=== PATIENT | female | born 1975 | race Caucasian/White ===

== ENCOUNTER → 2023-07-08 | Outpatient (CLI) | payer OTHER, SELFPAY ==
[2023-07-08 10:08] LABS: Absolute Lymphocyte Count 1.33 X10^3/uL (0.83-4.51); Absolute Neutrophil Count 2.2 X10^3/uL (2.0-7.7); Basophil# 0.05 X10^3/uL; Basophil% 1.2 % (0-1); Eosinophil# 0.19 X10^3/uL; Eosinophils% 4.5 % (0-5); Hematocrit 36.4 % (37-47); Lymphocyte # 1.33 X10^3/ul (0.83-4.51); Lymphocyte % 31.8 % (19-41); Mean Corp Hgb Conc 30.2 g/dL (32-36); Mean Corpuscular Hgb 26.7 pg (27.0-32.0); Mean Corpuscular Volume 88.3 fL (81-99); Mean Platelet Vol. 10.8 fl (6.2-12.0); Monocyte# 0.43 X10^3/uL; Monocyte% 10.3 % (0-10); NRBC Flagged by Analyzer 0 % (0-5); Neutrophil # 2.18 X10^3/uL (2.7-7.7); Neutrophil % 52.2 % (47-70); Platelet Count 236 K/mm3 (150-450); RBC Distribution Width CV 14.2 % (11.6-14.6); RBC Distribution Width SD 45.2 fl (35.1-43.9); Red Blood Count 4.12 M/mm3 (4.2-5.4); White Blood Count 4.2 K/mm3 (4.4-11.0)
[2023-07-08 10:21] LABS: ALB/GLOB Ratio 0.9 RATIO (0.9-2.4); AST(SGOT) 14 U/L (15-37); Alanine Aminotransfer ALT/SGPT 18 U/L (13-56); Albumin, Serum 3.3 g/dL (3.2-5.0); Alkaline Phosphatase 42 U/L (45-117); Anion Gap 4 (5-15); BUN 12 mg/dL (7-18); BUN/Creat Ratio 18.6 RATIO (10-20); Calcium,Total 8.2 mg/dL (8.5-10.1); Chloride 108 mmol/L (98-107); Cholesterol 162 mg/dL (200); Creatinine, Serum 0.65 mg/dL (0.55-1.02); EST Glomerular Filtration Rate 105 mL/min (>60); Est Glom Filt Rate - Afr Amer 126 mL/min (>60); Globulin 3.6 g/dL (2.2-4.2); Glucose 88 mg/dL (74-106); High Density Lipoprotein 75 mg/dL; Potassium 3.9 mmol/L (3.5-5.1); Protein, Total 6.9 g/dL (6.4-8.2); Sodium Level 141 mmol/L (136-145); Triglycerides 57 mg/dL; Very Low Density Lipoprotein 11 mg/dL (5-40)
== END | disposition home or self-care (01) ==
PROVIDERS: PCP Family Medicine; Referring Provider Family Medicine; Visit Provider Family Medicine
DX: Z13.1 Encounter for screening for diabetes mellitus (principal); Z13.220 Encounter for screening for lipoid disorders; F41.9 Anxiety disorder, unspecified
CPT/HCPCS: 36415; 80053; 80061; 85025

== ENCOUNTER → 2025-04-25 | Outpatient (CLI) | payer SELFPAY, OTHER ==
--- NOTE | 2025-04-25 07:40 | BI_ITS ---
EXAM: SCRN MAMM (CAD)W/JIA BILAT DATE: 04/25/2025 CLINICAL HISTORY: F, Age 49 y/o , SCREENING BREAST CANCER RISK ASSESSMENT: Has not been calculated. TECHNIQUE: Bilateral screening digital breast tomosynthesis with 2D and 3D images. Computer aided detection. COMPARISON: Prior exam(s) dated 12/10/2021 and 01/16/2017. FINDINGS: TISSUE DENSITY: The breast tissue is extremely dense which lowers the sensitivity of mammography. Bilateral Breast Mammographic Findings: There are no suspicious masses, suspicious cluster of microcalcifications, architectural distortion or secondary signs of malignancy identified in either breast. Benign-appearing round microcalcifications are seen in both breasts. Stable nodular masslike densities are seen in both breasts. BI/SCRN MAMM (CAD)W/JIA BILAT IMPRESSION: OVERALL FINAL ASSESSMENT: BIRADS 2 BENIGN FINDING RECOMMENDATION: Routine annual follow-up in 1 Year A letter with findings and recommendations will be mailed to the patient. Reading Location: [id number]
== END | disposition home or self-care (01) ==
PROVIDERS: PCP Family Medicine; Referring Provider Family Medicine; Visit Provider Family Medicine
DX: Z12.31 Encounter for screening mammogram for malignant neoplasm of breast (principal)
CPT/HCPCS: 77063; 77067

== ENCOUNTER → 2025-07-04 | Outpatient (CLI) | payer OTHER, SELFPAY ==
[2025-07-04 10:12] LABS: Hematocrit 35.4 % (37-47); Hemoglobin 11.2 g/dL (12.0-15.0); Immature Granulocytes Count 0.010 X10^3/uL (0.0-0.0); Mean Corp Hgb Conc 31.6 g/dL (32-36); Mean Corpuscular Volume 84.9 fL (81-99); Mean Platelet Vol. 10.3 fl (6.2-12.0); NRBC Flagged by Analyzer 0 % (0-5); Platelet Count 247 K/mm3 (150-450); RBC Distribution Width CV 13.4 % (11.6-14.6); RBC Distribution Width SD 41.7 fl (35.1-43.9); Red Blood Count 4.17 M/mm3 (4.2-5.4); White Blood Count 4.8 K/mm3 (4.4-11.0)
[2025-07-04 11:13] LABS: AST(SGOT) 21 U/L (<=31); Alanine Aminotransfer ALT/SGPT 14 U/L (<=34); Albumin, Serum 4.3 g/dL (3.5-5.0); Alkaline Phosphatase 44 U/L (35-104); Anion Gap 9 (5-15); BUN 11 mg/dL (4-19); BUN/Creat Ratio 16.9 RATIO (10-20); Calcium,Total 8.8 mg/dL (7.6-11.0); Carbon Dioxide 23.9 mmol/L (21.0-32.0); Chloride 103 mmol/L (98-108); Globulin 2.9 g/dL (2.2-4.2); Glucose 91 mg/dL (70-99); Iron 44 ug/dL (50-170); Potassium 3.9 mmol/L (3.3-5.1); Vitamin D,25 Hydroxy 49.5 ng/mL (30-100)
== END | disposition home or self-care (01) ==
LOC: MTLAB 08:54
PROVIDERS: PCP Family Medicine; Referring Provider Family Medicine; Visit Provider Family Medicine
DX: D64.9 Anemia, unspecified (principal); Z12.39 Encounter for other screening for malignant neoplasm of breast
CPT/HCPCS: 36415; 80053; 82306; 83540; 85025

== ENCOUNTER → 2025-10-13 | Outpatient (CLI) | payer SELFPAY, OTHER ==
--- NOTE | 2025-10-13 06:44 | ECHOD_ITS ---
Reason For Study Reason For Study: Premature Ventricular Complex Procedure This was a 2D Doppler, Color Flow transthoracic echocardiogram. Exam performed in department. Left Ventricle Normal LV size. Normal left ventricular thickness. The estimated ejection fraction is 55 %. Normal diastology for age. Right Ventricle Normal size and thickness. Normal systolic function. Atria Normal left atrium. Mitral Valve The mitral valve is structurally normal. No prolapse or stenosis seen. No mitral valve insufficiency. Tricuspid Valve Unable to estimate RV systolic pressure due to inadequate jet, pulmonary artery pressure probably normal. Aortic Valve Normal aortic valve. Pulmonic Valve Normal pulmonic valve. Great Vessels Normal sized aortic root. Pericardium/Pleural No pericardial effusion. MMode/2D Measurements & Calculations LVIDd: 4.9 cm IVSd: 0.74 cm Ao root diam: 3.1 cm LVIDs: 3.2 cm LVPWd: 0.74 cm RVDd: 3.1 cm FS: 35.1 % LAV(MOD-bp): 54.2 ml LVAd ap4: 33.0 cm2 LVAd ap2: 33.1 cm2 LAV(MOD-bp) Indexed: 30.0 ml/m2 LVLd ap4: 8.5 cm LVLd ap2: 8.6 cm LAV(MOD-sp2): 56.9 ml EDV(MOD-sp4): 107.3 ml EDV(MOD-sp2): 107.7 ml LAV(MOD-sp4): 37.8 ml EDV(sp4-el): 109.2 ml EDV(sp2-el): 108.0 ml LVAs ap4: 14.0 cm2 LVAs ap2: 13.4 cm2 LVLs ap4: 6.0 cm LVLs ap2: 6.1 cm ESV(MOD-sp4): 27.5 ml ESV(MOD-sp2): 25.9 ml ESV(sp4-el): 27.7 ml ESV(sp2-el): 25.3 ml EF(MOD-sp4): 74.4 % EF(MOD-sp2): 76.0 % EF(sp4-el): 74.6 % SV(MOD-sp4): 79.8 ml SV(MOD-sp2): 81.9 ml SV(sp4-el): 81.5 ml SI(MOD-sp4): 44.1 ml/m2 SI(MOD-sp2): 45.3 ml/m2 LA A4 area: 13.8 cm2 LA dimension(2D): 3.4 cm RA A4 area: 16.7 cm2 TAPSE: 2.7 cm Time Measurements MV dec time: 0.19 sec Doppler Measurements & Calculations MV E max gavin: 68.9 cm/sec Lat Peak E' Gavin: 15.4 cm/sec Med Peak E' Gavin: 14.6 cm/sec MV A max gavin: 57.1 cm/sec E/E' lat: 4.5 E/E' med: 4.7 MV E/A: 1.2 MV V2 max: 118.1 cm/sec MV P1/2t max gavin: 110.3 cm/sec Ao V2 max: 130.8 cm/sec MV max P.6 mmHg MV P1/2t: 59.1 msec Ao max P.8 mmHg MV V2 mean: 53.7 cm/sec Ao V2 mean: 88.2 cm/sec MV mean P.4 mmHg MV dec slope: 546.4 cm/sec2 Ao mean P.4 mmHg MV V2 VTI: 27.1 cm MVA(P1/2t): 3.7 cm2 Ao V2 VTI: 25.5 cm AV (velocity ratio): 0.90 LV V1 max: 110.8 cm/sec PA V2 max: 100.4 cm/sec TR max gavin: 222.8 cm/sec LV V1 max P.9 mmHg TR max P.9 mmHg LV V1 mean P.6 mmHg LV V1 mean: 75.3 cm/sec LV V1 VTI: 22.9 cm ECHO/Echo Complete Interpretation Summary . Normal LV size and wall thickness and function with estimated LVEF 60%. Normal diastolic function Normal right ventricular size and function No pericardial effusion. No significant valvular pathology Unable to accurately assess right-sided pressures due to absence of clear TR si gnal Ordering Physician: Ricki Nice Referring Physician: Ricki Nice Performed By: Macarena Montilla RDCS, RVT
--- OUTSIDE RECORDS SUMMARY | 2025-10-13 06:45 | XMS RPT_ITS | CCD ---
Author Organization [facility] Care Team Providers Care Settlement Clerk Name Role Phone Thomas SHAVER, Estephania Primary Care Provider Tex SHAVER, Ricki Primary Care Provider Tex SHAVER, Ricki Attending Provider Tex SHAVER, Ricki Referring Provider Ricki Nice Attending Unavailable Tex, Juliaon Referring Unavailable Tex, Juliaon Primary Care Unavailable Tex, Juliaon Attending Unavailable Tex, Juliaon Referring Unavailable Tex, Juliaon Primary Care Unavailable Tex, Juliaon Attending Unavailable Tex, Juliaon Referring Unavailable Tex, Chalon Primary Care Unavailable Medications Current Medications Medication Drug Class(es) Dates Sig (Normalized) Sig (Original) acetaminophen 325 mg / oxyCODONE hydrochloride 5 mg oral tablet (3 sources) Opioid Agonist Start: 05-05-2017 Oxycodone-Acetamin ophen 1 TABLET tablet Active 1 {tbl} PO EVERY 4 HOURS NEEDED as needed for Pain 20 May 05, 2017 12:00am Start: 05-05-2017 take 1 tablet by ashleigh th every four hours as needed Oxycodone-Acetaminophen Active 1 TABLET PO EVERY 4 HOURS NEEDED May 05, 2017 12:00am Vit,Jspj86-Bulp-Fsyzc (Prenatabs Fa) 1 TABLET tablet (3 sources) Start: 12-13-2013 take 1 tablet by mouth once daily Vit,Adud65-Afmf-Jmdss (Prenatabs Fa) 1 TABLET tablet Active 1 {tbl} PO DAILY December 13, 2013 1:00am Start: 12-13-2013 take 1 tablet by ashleigh th once daily Vit,Fgro24-Rtca-Upyip (Prenatab s Fa) 1 TABLET tablet Active 1 TABLET PO DAILY December 13, 2013 1:00am Completed/Discontinued Medications Medication Drug Class(es) Dates Sig (Normalized) Sig (Original) PARoxetine hydrochloride 10 mg oral tablet (4 sources) Serotonin Reuptake Inhibitor Start: 07-02-2021 End: 06-26-2022 take 1 tablet by mouth once daily PARoxetine (PAXIL) 10 mg tablet Indications: Generalized anxiety disorder Take 1 tablet by mouth once daily. 90 tablet 3 06/26/2022 Active Comment on above: Take 1 tablet by ashleigh th once daily. 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 Deficiency and other anemia (1 source) Anemia, unspecified; Translations: [Anemia, unspecified] Onset: 07-08-2025 Episodic Past or Other Problems Problem Classification Problem Date Documented Da te Episodic/Chronic Diabetes or abnormal glucose tolerance complicating ; childbirth; or the puerperium (3 sources) Impaired glucose tolerance in ; Translations: [Abnormal glucose complicating ] Onset: 09-23-2013 11-19-2021 Episodic Nonmalignant breast conditions (3 sources) Discharge from nipple; Translations: [Nipple discharge] Onset: 01-21-2017 01-21-2017 Episodic Other screening for suspected conditions (not mental disorders or infectious disease) (3 sources) Patient encounter status; Translations: [Encounter for screening mammogram for malignant neoplasm of breast] Onset: 04-28-2025 Episodic Residual codes; unclassified (3 sources) FH: Congenital anomaly; Translations: [Family history of other congenital malformations, deformations and chromosomal abnormalities] Onset: 05-17-2013 11-19-2021 Episodic Results Test Name Value Interpretation Reference Range Facility Absolute lymphocyte countOrd ered By: Ricki Nice on 07-04-2025 Lymphocytes Auto (Unsp spec) [#/Vol] 1.55 10*3/uL 0.83-4.51 [facility] Absolute neutrophil countOrd ered By: Ricki Nice on 07-04-2025 Neutrophils (Bld) [#/Vol] 2.6 10*3/uL 2.0-7.7 [facility] Anion gap in Serum or Plasma Ordered By: Ricki Nice on 07-04-2025 Anion gap [Moles/Vol] 9 mmol/L 5-15 [facility] Automated lymphocyte count a s percentage of total leukocytesOrdered By: Ricki Nice on 07-04-2025 Lymphocytes/100 WBC Auto (Unsp spec) 32.6 % 19-41 [facility] BUN/creatinine ratioOrdered By: Ricki Nice on 07-04-2025 Urea nitrogen/Creatinine [Mass ratio] 16.9 mg/mg 10-20 [facility] Basophil percentageOrdered B y: Ricki Nice on 07-04-2025 Basophils/100 WBC (Bld) 0.8 % 0-1 [facility] Bilirubin, totalOrdered By: Ricki Nice on 07-04-2025 Bilirubin [Mass/Vol] 0.82 mg/dL 0.00-1.30 [facility] CBC W/Diff, Automatedon 06-24 Absolute Lymph 1.55 X10 3/uL Normal 0.83-4.51 [facility] Comment on above: Order Comment: Order Date: 03/24/25 Order Info: 0184-1 - CBCD Performed By: #### L 500.4050, L503.6150, L100.0100 #### [facility] [address] [place], [address] Absolute Neut 2.6 X10 3/uL Normal 2.0-7.7 [facility] Comment on above: Order Comment: Order Date: 03/24/25 Order Info: 0184-1 - CBCD Performed By: #### L 500.4050, L503.6150, L100.0100 #### [facility] [address] [place], [address] Basophils/100 WBC (Bld) 0.8 % Normal 0-1 [facility] Comment on above: Order Comment: Order Date: 03/24/25 Order Info: 0184-1 - CBCD Performed By: #### L 500.4050, L503.6150, L100.0100 #### [facility] [address] [place], [address] Eosinophils/100 WBC (Bld) 3.4 % Normal 0-5 [facility] Comment on above: Order Comment: Order Date: 03/24/25 Order Info: 0184-1 - CBCD Performed By: #### L 500.4050, L503.6150, L100.0100 #### [facility] [address] [place], [address] Erythrocyte distribution width (RBC) [Ratio] 13.4 % Normal 11.6-14.6 [facility] Comment on above: Order Comment: Order Date: 03/24/25 Order Info: 0184-1 - CBCD Performed By: #### L 500.4050, L503.6150, L100.0100 #### [facility] [address] [place], [address] Hematocrit (Bld) [Volume fraction] 35.4 % Low 37-47 [facility] Comment on above: Order Comment: Order Date: 03/24/25 Order Info: 0184- - CBCD Performed By: #### L 500.4050, L503.6150, L100.0100 #### [facility] [address] [place], [address] Hemoglobin (Bld) [Mass/Vol] 11.2 g/dL Low 12.0-15.0 [facility] Comment on above: Order Comment: Order Date: 03/24/25 Order Info: 0184-1 - CBCD Performed By: #### L 500.4050, L503.6150, L100.0100 #### [facility] [address] [place], [address] IG% 0.200 Normal 0.0-0.9 [facility] Comment on above: Order Comment: Order Date: 03/24/25 Order Info: 0184-1 - CBCD Result Comment: IG% - Immature Granulocytes (promyelocytes, myelocytes and metamyelocytes) > 1% indicates that a LEFT SHIFT is Present. Performed By: #### L 500.4050, L503.6150, L100.0100 #### [facility] [address] [place], [address] Lymphocytes/100 WBC (Bld) 32.6 % Normal 19-41 [facility] Comment on above: Order Comment: Order Date: 03/24/25 Order Info: 0184-1 - CBCD Performed By: #### L 500.4050, L503.6150, L100.0100 #### [facility] [address] [place], [address] MCH (RBC) [Entitic mass] 26.9 pg Low 27.0-32.0 [facility] Comment on above: Order Comment: Order Date: 03/24/25 Order Info: 0184-1 - CBCD Performed By: #### L 500.4050, L503.6150, L100.0100 #### [facility] [address] [place], [address] MCHC (RBC) [Mass/Vol] 31.6 g/dL Low 32-36 [facility] Comment on above: Order Comment: Order Date: 03/24/25 Order Info: 0184-1 - CBCD Performed By: #### L 500.4050, L503.6150, L100.0100 #### [facility] [address] [place], [address] MCV (RBC) [Entitic vol] 84.9 fL Normal 81-99 [facility] Comment on above: Order Comment: Order Date: 03/24/25 Order Info: 0184-1 - CBCD Performed By: #### L 500.4050, L503.6150, L100.0100 #### [facility] [address] [place], [address] Monocytes/100 WBC (Bld) 8.8 % Normal 0-10 [facility] Comment on above: Order Comment: Order Date: 03/24/25 Order Info: 0184-1 - CBCD Performed By: #### L 500.4050, L503.6150, L100.0100 #### [facility] [address] [place], [address] Neutrophils/100 WBC (Bld) 54.2 % Normal 47-70 [facility] Comment on above: Order Comment: Order Date: 03/24/25 Order Info: 0184-1 - CBCD Performed By: #### L 500.4050, L503.6150, L100.0100 #### [facility] [address] [place], [address] Nucleated RBC (Bld) [#/Vol] 0 10*3/uL Normal 0-5 [facility] Comment on above: Order Comment: Order Date: 03/24/25 Order Info: 0184-1 - CBCD Performed By: #### L 500.4050, L503.6150, L100.0100 #### [facility] [address] [place], [address] Platelet mean volume (Bld) [Entitic vol] 10.3 fL Normal 6.2-12.0 [facility] Comment on above: Order Comment: Order Date: 03/24/25 Order Info: 0184-1 - CBCD Performed By: #### L 500.4050, L503.6150, L100.0100 #### [facility] [address] [place], [address] Platelets (Bld) [#/Vol] 247 10*3/uL Normal 150-450 [facility] Comment on above: Order Comment: Order Date: 03/24/25 Order Info: 0184-1 - CBCD Performed By: #### L 500.4050, L503.6150, L100.0100 #### [facility] [address] [place], [address] RBC (Bld) [#/Vol] 4.17 10*6/uL Low 4.2-5.4 [facility] Comment on above: Order Comment: Order Date: 03/24/25 Order Info: 0184-1 - CBCD Performed By: #### L 500.4050, L503.6150, L100.0100 #### [facility] [address] [place], [address] RDW SD 41.7 fl Normal 35.1-43.9 [facility] Comment on above: Order Comment: Order Date: 03/24/25 Order Info: 0184- - CBCD Performed By: #### L 500.4050, L503.6150, L100.0100 #### [facility] [address] [place], [address] WBC (Bld) [#/Vol] 4.8 10*3/uL Normal 4.4-11.0 [facility] Comment on above: Order Comment: Order Date: 03/24/25 Order Info: 0184- - CBCD Performed By: #### L 500.4050, L503.6150, L100.0100 #### [facility] [address] [place], [address] Carbon dioxide, total [Moles /volume] in Central venous bloodOrdered By: Ricki Nice on 07-04-2025 CO2 [Moles/Vol] 23.9 mmol/L 21.0-32.0 [facility] Chloride assayOrdered By: Trish Nice on 07-04-2025 Chloride [Moles/Vol] 103 mmol/L 98-108 [facility] Metabolic Prof ilon 07-04-2025 Albumin [Mass/Vol] 4.3 g/dL Normal 3.5-5.0 [facility] Comment on above: Order Comment: Order Date: 03/24/25 Order Info: 0786-1 - CMP Order Info: 2498-4 - FE Performed By: #### L 500.4050, L503.6150, L100.0100 #### [facility] [address] [place], [address] Albumin/Globulin [Mass ratio] 1.5 {ratio} Normal 0.9-2.4 [facility] Comment on above: Order Comment: Order Date: 03/24/25 Order Info: 0786-1 - CMP Order Info: 2498-4 - FE Performed By: #### L 500.4050, L503.6150, L100.0100 #### [facility] [address] [place], [address] ALK PHOS 44 U/L Normal 35-104 [facility] Comment on above: Order Comment: Order Date: 03/24/25 Order Info: 0786-1 - CMP Order Info: 2498-4 - FE Performed By: #### L 500.4050, L503.6150, L100.0100 #### [facility] [address] [place], [address] ALT [Catalytic activity/Vol] 14 U/L Normal <=34 [facility] Comment on above: Order Comment: Order Date: 03/24/25 Order Info: 0786-1 - CMP Order Info: 2498-4 - FE Performed By: #### L 500.4050, L503.6150, L100.0100 #### [facility] [address] [place], [address] AST [Catalytic activity/Vol] 21 U/L Normal <=31 [facility] Comment on above: Order Comment: Order Date: 03/24/25 Order Info: 0786-1 - CMP Order Info: 2498-4 - FE Performed By: #### L 500.4050, L503.6150, L100.0100 #### [facility] [address] [place], [address] Bilirubin [Mass/Vol] 0.82 mg/dL Normal 0.00-1.30 [facility] Comment on above: Order Comment: Order Date: 03/24/25 Order Info: 0786-1 - CMP Order Info: 2498-4 - FE Performed By: #### L 500.4050, L503.6150, L100.0100 #### [facility] [address] [place], [address] BUN/CRE 16.9 RATIO Normal 10-20 [facility] Comment on above: Order Comment: Order Date: 03/24/25 Order Info: 0786-1 - CMP Order Info: 2498-4 - FE Performed By: #### L 500.4050, L503.6150, L100.0100 #### [facility] [address] [place], [address] Calcium [Mass/Vol] 8.8 mg/dL Normal 7.6-11.0 [facility] Comment on above: Order Comment: Order Date: 03/24/25 Order Info: 0786-1 - CMP Order Info: 2498-4 - FE Performed By: #### L 500.4050, L503.6150, L100.0100 #### [facility] [address] [place], [address] Chloride [Moles/Vol] 103 mmol/L Normal 98-108 [facility] Comment on above: Order Comment: Order Date: 03/24/25 Order Info: 0786-1 - CMP Order Info: 2498-4 - FE Performed By: #### L 500.4050, L503.6150, L100.0100 #### [facility] [address] [place], [address] CO2 [Moles/Vol] 23.9 mmol/L Normal 21.0-32.0 [facility] Comment on above: Order Comment: Order Date: 03/24/25 Order Info: 0786-1 - CMP Order Info: 2498-4 - FE Performed By: #### L 500.4050, L503.6150, L100.0100 #### [facility] [address] [place], [address] Creatinine [Mass/Vol] 0.64 mg/dL Low 0.70-1.20 [facility] Comment on above: Order Comment: Order Date: 03/24/25 Order Info: 0786-1 - CMP Order Info: 2498-02 - FE Performed By: #### L 500.4050, L503.6150, L100.0100 #### [facility] [address] [place], [address] GAP 9 Normal 5-15 [facility] Comment on above: Order Comment: Order Date: 03/24/25 Order Info: 0786-1 - CMP Order Info: 24906-27 - FE Performed By: #### L 500.4050, L503.6150, L100.0100 #### [facility] [address] [place], [address] GFR/1.73 sq M.predicted among non-blacks MDRD (S/P/Bld) [Vol rate/Area] 108 mL/min/{1.73_m2} Normal >60 [facility] Comment on above: Order Comment: Order Date: 03/24/25 Order Info: 0786-1 - CMP Order Info: 2498-02 - FE Result Comment: mL/m in/1.73m2 CKD-EPI Creatinine Equation (2020) Performed By: #### L 500.4050, L503.6150, L100.0100 #### [facility] [address] [place], [address] Globulin (S) [Mass/Vol] 2.9 g/dL Normal 2.2-4.2 [facility] Comment on above: Order Comment: Order Date: 03/24/25 Order Info: 0786-1 - CMP Order Info: 24906-27 - FE Performed By: #### L 500.4050, L503.6150, L100.0100 #### [facility] [address] [place], [address] Glucose [Mass/Vol] 91 mg/dL Normal 70-99 [facility] Comment on above: Order Comment: Order Date: 03/24/25 Order Info: 0786-1 - CMP Order Info: 2498-4 - FE Performed By: #### L 500.4050, L503.6150, L100.0100 #### [facility] [address] [place], [address] Potassium [Moles/Vol] 3.9 mmol/L Normal 3.3-5.1 [facility] Comment on above: Order Comment: Order Date: 03/24/25 Order Info: 0786-1 - CMP Order Info: 2498-4 - FE Performed By: #### L 500.4050, L503.6150, L100.0100 #### [facility] [address] [place], [address] Sodium [Moles/Vol] 136 mmol/L Normal 133-145 [facility] Comment on above: Order Comment: Order Date: 03/24/25 Order Info: 0786-1 - CMP Order Info: 2498-4 - FE Performed By: #### L 500.4050, L503.6150, L100.0100 #### [facility] [address] [place], [address] T PROT 7.2 g/dL Normal 5.9-8.4 [facility] Comment on above: Order Comment: Order Date: 03/24/25 Order Info: 0786-1 - CMP Order Info: 2498-4 - FE Performed By: #### L 500.4050, L503.6150, L100.0100 #### [facility] [address] [place], [address] Urea nitrogen [Mass/Vol] 11 mg/dL Normal 4-19 [facility] Comment on above: Order Comment: Order Date: 03/24/25 Order Info: 0786-1 - CMP Order Info: 2498-4 - FE Performed By: #### L 500.4050, L503.6150, L100.0100 #### [place] [facility] [address] [place], [address] Eosinophil percentageOrdered By: Ricki Nice on 07-04-2025 Eosinophils/100 WBC (Bld) 3.4 % 0-5 [facility] Erythrocyte distribution wid th ratioOrdered By: [facility] on 07-04-2025 Erythrocyte distribution width (RBC) [Ratio] 13.4 % 11.6-14.6 [facility] Erythrocyte distribution wid th standard deviationOrdered By: Ricki Nice on 07-04-2025 Erythrocyte distribution width (RBC) [Ratio] 41.7 fl 35.1-43.9 [facility] Glomerular filtration rate ( GFR) estimation/1.73 sq m using serum, plasma, or whole bOrdered By: [facility] Hospital[facility]rie Tex on 07-04-2025 GFR/1.73 sq M.predicted among non-blacks MDRD (S/P/Bld) [Vol rate/Area] 108 mL/min/{1.73_m2} >60 [facility] Comment on above: mL/min/1.73m2 CKD-EP I Creatinine Equation (2020) Hematocrit Auto (Bld) [Volum e fraction]Ordered By: Ricki Nice on 07-04-2025 Hematocrit (Bld) [Volume fraction] 35.4 % Low 37-47 [facility] Hemoglobin measurementOrdere d By: Ricki Nice on 07-04-2025 Hemoglobin (Bld) [Mass/Vol] 11.2 g/dL Low 12.0-15.0 [facility] Immature granulocytes/100 WB C Auto (Bld)Ordered By: Ricki Nice on 07-04-2025 Immature granulocytes/100 WBC (Bld) 0.200 % 0.0-0.9 [facility] Comment on above: IG% - Immature Granu locytes (promyelocytes, myelocytes and metamyelocytes) > 1% indicates that a LEFT SHIFT is Present. Ironon 07-04-2025 Iron [Mass/Vol] 44 ug/dL Low 50-170 [facility] Comment on above: Order Comment: Order Date: 03/24/25 Order Info: 0786-1 - CMP Order Info: 2498-4 - FE Performed By: #### L 500.4050, L503.6150, L100.0100 #### [facility] [address] [place], [address] Iron measurement (mass/mass) Ordered By: Ricki Nice on 07-04-2025 Iron (Unsp spec) [Mass/Mass] 44 ug/dL Low 50-170 [facility] - Chemistry and C hemistry - challengeOrdered By: Ricki Nice on 07-04-2025 AST [Catalytic activity/Vol] 21 U/L <32 [facility] MCV (mean corpuscular volume ) determinationOrdered By: Ricki Nice on 07-04-2025 MCV (RBC) [Entitic vol] 84.9 fL 81-99 [facility] Mean corpuscular hemoglobin (MCH) determinationOrdered By: Ricki Nice on 07-04-2025 MCH (RBC) [Entitic mass] 26.9 pg Low 27.0-32.0 [facility] Mean corpuscular hemoglobin concentration (MCHC) determinationOrdered By: Ricki Nice on 07-04-2025 MCHC (RBC) [Mass/Vol] 31.6 g/dL Low 32-36 [facility] Mean platelet volume determi nationOrdered By: Ricki Nice on 07-04-2025 Platelet mean volume (Bld) [Entitic vol] 10.3 fL 6.2-12.0 [facility] Monocyte percentageOrdered B y: Ricki Nice on 07-04-2025 Monocytes/100 WBC (Bld) 8.8 % 0-10 [facility] Neutrophil percentageOrdered By: Ricki Nice on 07-04-2025 Neutrophils/100 WBC (Bld) 54.2 % 47-70 [facility] Nucleated red blood cell per centageOrdered By: Ricki Nice on 07-04-2025 Nucleated RBC/100 WBC (Bld) [Ratio] 0 % 0-5 [facility] Platelet countOrdered By: Trish Nice on 07-04-2025 Platelets (Bld) [#/Vol] 247 10*3/uL 150-450 [facility] Potassium measurement (mass/ volume)Ordered By: Ricki Nice on 07-04-2025 Potassium (Unsp spec) [Mass/Vol] 3.9 mmol/L 3.3-5.1 [facility] RBC Auto (Bld) [#/Vol]Ordere d By: Ricki Nice on 07-04-2025 RBC (Bld) [#/Vol] 4.17 10*6/uL Low 4.2-5.4 [facility] Serum creatinine measurement (mass/volume)Ordered By: Ricki Nice on 07-04-2025 Creatinine [Mass/Vol] 0.64 mg/dL Low 0.70-1.20 [facility] Serum globulin measurementOr dered By: Ricki Nice on 07-04-2025 Globulin (S) [Mass/Vol] 2.9 g/dL 2.2-4.2 [facility] Serum glucose measurement (m ass/volume)Ordered By: Ricki Nice on 07-04-2025 Glucose [Mass/Vol] 91 mg/dL 70-99 [facility] Serum or plasma alanine russell otransferase (ALT) measurementOrdered By: Ricki Nice on 07-04-2025 ALT [Catalytic activity/Vol] 14 U/L <35 [facility] Serum or plasma albumin immanuel urement (mass/volume)Ordered By: Ricki Nice on 07-04-2025 Albumin [Mass/Vol] 4.3 g/dL 3.5-5.0 [facility] Serum or plasma albumin/glob ulin mass ratioOrdered By: Ricki Nice on 07-04-2025 Albumin/Globulin [Mass ratio] 1.5 {ratio} 0.9-2.4 [facility] Serum or plasma alkaline suzy sphatase measurementOrdered By: Ricki Nice on 07-04-2025 ALP [Catalytic activity/Vol] 44 U/L 35-104 [facility] Serum or plasma calcium immanuel urement (mass/volume)Ordered By: Ricki Nice on 07-04-2025 Calcium [Mass/Vol] 8.8 mg/dL 7.6-11.0 [facility] Serum or plasma urea nitroge n measurement (mass/volume)Ordered By: Ricki Nice on 07-04-2025 Urea nitrogen [Mass/Vol] 11 mg/dL 4-19 [facility] Sodium levelOrdered By: Julia Nice on 07-04-2025 Sodium [Moles/Vol] 136 mmol/L 133-145 [facility] Total proteinOrdered By: Mojgan Nice on 07-04-2025 Protein [Mass/Vol] 7.2 g/dL 5.9-8.4 [facility] Vitamin D,25 Hydroxyon 07-04 Vitamin D 25-OH 49.5 ng/mL Normal 30-100 [facility] Comment on above: Order Comment: Order Date: 03/24/25 Order Info: 0786-1 - CMP Order Info: 2498-4 - FE Result Comment: [place] min D Status Deficiency: <20 ng/mL (50nmol/L) Insufficiency: 20-30 ng/mL (50-75 nmol/L) Sufficiency: 30-100 ng/mL (75-250 nmol/L) Toxicity: >100 ng/mL (>250 nmol/L) Performed By: #### L 506.1001 #### [facility] [address] [place], [place], [address] White blood cell (WBC) count Ordered By: Ricki Nice on 07-04-2025 WBC (Bld) [#/Vol] 4.8 10*3/uL 4.4-11.0 [facility] Breast imaging reportOrdered By: Shahrzad Walls on 04-25-2025 Study report [facility] [address] [place], [place] [address] SCRN MAMM (CAD)W/JIA BILAT MR#: [id number] Acct: [id number] Name: BATOOL SANTILLAN Rep #: [id number] : 1975 F 49 From: Aubrey Walls DO PCP: Dr. Ricki Nice MD Status: REG CL I Study:SCRN MAMM (CAD)W/JIA BILAT Date of Exa m: 04/25/25 Exam# [id number] Ordering Dr: Mojgan Nice MD EXAM: SCRN MAMM (CAD)W/JIA BILAT DATE: 04/25/2025 CLINICAL HISTORY: F, Age 49 y/o , SCREENING BREAST CANCER RISK ASSESSMENT: Has not been calculated. TECHNIQUE: Bilateral screening digital breast tomosynthesis with 2D and 3D images. Computeraided detection. COMPARISON: Prior exam(s) dated 12/10/2021 and 01/16/2017. FINDINGS: TISSUE DENSITY: The breast tissue is extremely dense which lowers the sensitivity of mammography. Bilateral Breast Mammographic Findings: There are no suspicious masses, suspicious cluster of microcalcifications, architectural distortion or secondary signs of malignancy identified in either breast. Benign-appearing round microcalcifications are seen in both breasts. Stable nodular masslike densities are seen in both breasts. BI/SCRN MAMM (CAD)W/JIA BILAT IMPRESSION: OVERALL FINAL ASSESSMENT: BIRADS 2 BENIGN FINDING RECOMMENDATION: Routine annual follow-up in 1 Year A letter with findings and recommendations will be mailed to the patient. Reading Location: [facility] CC: Dr. Ricki Nice MD ~ Crochet Beader: Signed [facility] SCRN MAMM (CAD)W/JIA BILATo n 04-25-2025 SCRN MAMM (CAD)W/JIA BILAT [facility] Imaging Services [address] [place] [id number] SCRN MAMM (CAD)W/JIA BILAT MR#: [id number] Acct: [id number] Name: BATOOL SANTILLAN Rep #: [id number] : 1975 F 49 From: Shahrzad Vargas O PCP: Dr. Ricki Nice MD Status: REG CL Study: SCRN MAMM (CAD)W/JIA BILAT Date of Exam: 01/18 Exam# [id number] Ordering Dr: Ricki Nice MD EXAM: SCRN MAMM (CAD)W/JIA BILAT DATE: 04/25/2025 CLINICAL HISTORY: F, Age 49 y/o , SCREENING BREAST CANCER RISK ASSESSMENT: Has not been calculated. TECHNIQUE: Bilateral screening digital breast tomosynthesis with 2D and 3D images. Computer aided detection. COMPARISON: Prior exam(s) dated 12/10/2021 and 01/16/2017. FINDINGS: TISSUE DENSITY: The breast tissue is extremely dense which lowers the sensitivity of mammography. Bilateral Breast Mammographic Findings: There are no suspicious masses, suspicious cluster of microcalcifications, architectural distortion or secondary signs of malignancy identified in either breast. Benign-appearing round microcalcifications are seen in both breasts. Stable nodular masslike densities are seen in both breasts. BI/SCRN MAMM (CAD)W/JIA BILAT IMPRESSION: OVERALL FINAL ASSESSMENT: BIRADS 2 BENIGN FINDING RECOMMENDATION: Routine annual follow-up in 1 Year A letter with findings and recommendations will be mailed to the patient. Reading Location: [facility] CC: Dr. Ricki Nice MD Crochet Beader: Signed Normal [facility] Absolute lymphocyte countOrd ered By: Ricki Nice on 07-08-2023 Lymphocytes Auto (Unsp spec) [#/Vol] 1.33 10*3/uL 0.83-4.51 [facility] Basophil percentageOrdered B y: Ricki Nice on 07-08-2023 Basophils/100 WBC (Bld) 1.2 % 0-1 [facility] Bilirubin [Mass/Vol] 0.70 mg/dL 0.20-1.00 [facility] Comment on above: For patients on eltr ombopag therapy, use of Dimension [place] TBIL is not recommended. Chloride [Moles/Vol] 108 mmol/L 98-107 [facility] Cholesterol [Mass/Vol] 162 mg/dL <200 [place] Comment on above: <200 mg/dL Desirable 200-240 mg/dL Borderline >240 mg/dL High Risk Eosinophils/100 WBC (Bld) 4.5 % 0-5 [facility] Glucose [Mass/Vol] 88 mg/dL 74-106 [facility] Neutrophils (Bld) [#/Vol] 2.2 10*3/uL 2.0-7.7 [facility] Neutrophils/100 WBC (Bld) 52.2 % 47-70 [facility] Potassium [Moles/Vol] 3.9 mmol/L 3.5-5.1 [facility] Protein [Mass/Vol] 6.9 g/dL 6.4-8.2 [facility] Sodium [Moles/Vol] 141 mmol/L 136-145 [facility] Triglyceride [Mass/Vol] 57 mg/dL <199 [facility] Comment on above: The drugs N-Acetylcy steine and Metamizole may falsely depress this assay.Serum Triglycerides Reference Interval Normal <150 mg/dL Borderline high 150 - 199 mg/dL High 200 - 499 mg/dL Very High > or = 500 mg/dL WBC (Bld) [#/Vol] 4.2 10*3/uL 4.4-11.0 [facility] Blood erythrocytes count (nu mber/volume)Ordered By: Ricki Nice on 07-08-2023 RBC (Bld) [#/Vol] 4.12 10*6/uL 4.2-5.4 [facility] Blood hemoglobin measurement (mass/volume)Ordered By: Ricki Nice on 07-08-2023 Hemoglobin (Bld) [Mass/Vol] 11.0 g/dL 12.0-15.0 [facility] Blood lymphocytes/100 leukoc ytesOrdered By: Ricki Nice on 07-08-2023 Lymphocytes/100 WBC (Bld) 31.8 % 19-41 [facility] Blood monocytes/100 leukocyt esOrdered By: Ricki Nice on 07-08-2023 Monocytes/100 WBC (Bld) 10.3 % 0-10 [facility] Blood platelet mean volumeOr dered By: Ricki Nice on 07-08-2023 Platelet mean volume (Bld) [Entitic vol] 10.8 fL 6.2-12.0 [facility] Determination of erythrocyte mean corpuscular volume (MCV)Ordered By: Ricki Nice on 07-08-2023 MCV (RBC) [Entitic vol] 88.3 fL 81-99 [facility] Hematocrit Auto (Bld) [Volum e fraction]Ordered By: Ricki Nice on 07-08-2023 Hematocrit (Bld) [Volume fraction] 36.4 % 37-47 [facility] Laboratory - Chemistry and C hemistry - challengeOrdered By: Ricki Nice on 08-15-2023 ALP [Catalytic activity/Vol] 42 U/L 45-117 [facility] ALT [Catalytic activity/Vol] 18 U/L 13-56 [facility] CO2 [Moles/Vol] 29.0 mmol/L 21.0-32.0 [facility] Globulin (S) [Mass/Vol] 3.6 g/dL 2.2-4.2 [facility] Urea nitrogen/Creatinine [Mass ratio] 18.6 mg/mg 10-20 [facility] Laboratory - Hematology and Cell countsOrdered By: Ricki Nice on 07-08-2023 Erythrocyte distribution width (RBC) [Entitic vol] 45.2 fL 35.1-43.9 [facility] Erythrocyte distribution width (RBC) [Ratio] 14.2 % 11.6-14.6 [facility] Immature granulocytes/100 WBC (Bld) 0.000 % 0.0-0.9 [facility] Comment on above: IG% - Immature Granu locytes (promyelocytes, myelocytes and metamyelocytes) > 1% indicates that a LEFT SHIFT is Present. MCH (RBC) [Entitic mass] 26.7 pg 27.0-32.0 [facility] Nucleated RBC/100 WBC (Bld) [Ratio] 0 % 0-5 [facility] MCHC Auto (RBC) [Mass/Vol]Or dered By: Ricki Nice on 07-08-2023 MCHC (RBC) [Mass/Vol] 30.2 g/dL 32-36 [facility] No Panel InformationOrdered By: Ricki Nice on 07-08-2023 Estimated GFR (MDRD) Amer 126 mL/min >60 [facility] Comment on above: GFR Calc Estimated GFR (MDRD) Non-Af Amer 105 mL/min >60 [facility] Comment on above: Non- GFR Calc Platelets bldOrdered By: Mojgan Nice on 07-08-2023 Platelets (Bld) [#/Vol] 236 10*3/uL 150-450 [facility] Serum or plasma albumin immanuel urement (mass/volume)Ordered By: Ricki Nice on 07-08-2023 Albumin [Mass/Vol] 3.3 g/dL 3.2-5.0 [facility] Serum or plasma albumin/glob ulin mass ratioOrdered By: Ricki Nice on 07-08-2023 Albumin/Globulin [Mass ratio] 0.9 {ratio} 0.9-2.4 [facility] Serum or plasma calcium immanuel urement (mass/volume)Ordered By: Ricki Nice on 07-08-2023 Calcium [Mass/Vol] 8.2 mg/dL 8.5-10.1 [facility] Serum or plasma cholesterol in HDL measurement (mass/volume)Ordered By: Ricki Nice on 07-08-2023 Cholesterol in HDL [Mass/Vol] 75 mg/dL >40 [facility] Comment on above: The drugs N-Acetylcy steine and Metamizole may falsely depress this assay. Reference Range HDL <40 mg/dL Low HDL Cholesterol HDL >or= 60 mg/dL High HDL Cholesterol Serum or plasma cholesterol in VLDL measurement (mass/volume)Ordered By: Ricki Nice on 07-08-2023 Cholesterol in VLDL [Mass/Vol] 11 mg/dL 5-40 [facility] Serum or plasma creatinine m easurement (mass/volume)Ordered By: Ricki Nice on 07-08-2023 Creatinine [Mass/Vol] 0.65 mg/dL 0.55-1.02 [facility] Comment on above: The validity of the calculated GFR & GFRAA in patients over 70 years has not been determined. Clinical correlation is essential. Serum or plasma low density lipoprotein (LDL) cholesterol measurement (mass/volume)Ordered By: Ricki Nice on 07-08-2023 Cholesterol in LDL [Mass/Vol] 76 mg/dL 0-130 [facility] Serum or plasma urea nitroge n measurement (mass/volume)Ordered By: Ricki Nice on 07-08-2023 Urea nitrogen [Mass/Vol] 12 mg/dL 7-18 [facility] Thin prep Papanicolaou smear with manual screeningOrdered By: Ricki Nice on 07-08-2023 Thin prep Papanicolaou smear with manual screening 14 U/L 15-37 [facility] Thin prep Papanicolaou smear with manual screening 4 5-15 [facility] Encounters Encounter Date Encounter Type Care Provider Facility Start: 10-13-2025 ambulatory Ricki Nice Facility:[facility] Start: 07-04-2025 End: 07-04-2025 ambulatory Ricki Nice MD Work Phone: -[facility] Start: 07-04-2025 End: 07-04-[address] Ricki Nice MD -[facility] Work Phone: Start: 07-04-2025 End: 07-04-2025 ambulatory Ricki Nice Facility:[facility] Start: 04-25-2025 End: 04-25-2025 ambulatory Ricki Nice MD Work Phone: [facility] Work Phone: Start: 04-25-2025 End: 04-25-[address] Ricki Nice MD -Outpatient [facility] Work Phone: Start: 04-25-2025 End: 04-25-2025 ambulatory Ricki Nice Facility:[facility] Start: 01-28-2024 ambulatory Estephania Vargas Work Phone: [facility] Start: 07-08-2023 End: 07-08-2023 ambulatory [facility] Work Phone: Start: 07-08-2023 End: 07-08-2023 Patient encounter procedure [facility] [place] Work Phone: Start: 02-12-2023 ambulatory Estephania Vargas Work Phone: [facility] Start: 06-26-2022 Refill Estephania Vargas Work Phone: [facility] [place] Comment on above: Refill Request Procedures Date Procedure Procedure Detail Performing Clinician Start: 07-04-2025 Vitamin D, 25-hydrox y measurement Ricki Nice MD Work Phone: Comment on above: Vitamin D StatusDefi ciency: <20 ng/mL (50nmol/L)Insufficiency: 20-30 ng/mL (50-75 nmol/L)Sufficiency: 30-100 ng/mL (75-250 nmol/L)Toxicity: >100 ng/mL (>250 nmol/L) Start: 04-25-2025 Screening mammography C karime Nice MD Work Phone: Start: 12-10-2021 Mammography Estephania carr MD Work Phone: Start: 10-24-2021 Lipid 1996 panel - S casey or Plasma Estephania Herron MD Work Phone: Start: 08-27-2019 Adult depression scr eening assessment Estephania Herron MD Work Phone: Plan of Treatment Date Care Activity Detail Author Start: 10-24-2026 HPV TESTING HPV TESTING [facility] Start: 10-24-2026 Lipid panel Lipid Screening [facility] Start: 10-24-2026 LIPID SCREEN LIPID SCREEN [facility] Start: 10-24-2026 PAP TESTING PAP TESTING [facility] Start: 10-24-2026 Screening for malign ant neoplasm of cervix [facility] Start: 11-24-2023 Depression Assessment Depression Ass [facility] Start: 07-25-2023 Influenza vaccination Influenza Vacc ine (#1) [facility] Start: 12-10-2022 Mammography MAMMOGRAM [facility] Start: 12-10-2022 Screening for malign ant neoplasm of breast Mammogram Screening [facility] Start: 11-24-2022 [facility] Start: 08-27-2022 DIABETES SCREEN DIABETES SCREEN [facility] Start: 08-27-2022 Diabetes Screening Diabetes Screenin g [facility] Start: 07-25-2022 Influenza vaccination INFLUENZA (#1) [facility] Start: 2021 COLOGUARD (FIT-DNA) COLOGUARD (FIT-D NA) [facility] Start: 2021 Colonoscopy COLONOSCOPY [facility] Start: 2021 COLORECTAL CANCER SCREENING COLORECTAL CANCER SCREENING [facility] Start: [address] COLONOGRAPHY [facility] Start: 2021 FECAL OCCULT BLOOD FECAL OCCULT BLOO D [facility] Start: 2021 Screening for malign ant neoplasm of colon [facility] Start: 2021 SIGMOIDOSCOPY SIGMOIDOSCOPY [facility] Start: 08-27-2020 Adult depression screening assessment DEPRESSION SCREENING [facility] Start: 1995 Urine microalbumin profile [facility] Start: 1994 HEPATITIS C SCREENING HEPATITIS C [facility] Start: 1994 Hepatitis C screening Hepatitis C [facility] Start: 1994 HIV SCREENING HIV SCREENING [facility] Start: 1994 HIV screening HIV Screening [facility] Start: 1975 COVID-19 VACCINE (#1) COVID-19 VACCI NE (#1) [facility] Start: 1975 HEPATITIS B (1 of 3 - 3-dose series) HEPATITIS B (1 of 3 - 3-dose series) [facility] Start: 1975 Hepatitis B Vaccine (1 of 3 - 3-dose series) Hepatitis B Vaccine (1 of 3 - 3-dose series) [facility] End: 02-26-2025 DBT Breast - bilateral screening UMESH SCREENING W [facility] Radiology Routine Encounter for screening mammogram for breast cancer 1 Occurrences starting 01/28/2024 until 02/26/2025 [facility] Work Phone: Comment on above: 1 Occurrences starti ng 01/28/2024 until 02/26/2025 End: 03-13-2024 UMESH SCREENING W JIA UM[facility] SCREENING [facility] Radiology Routine Encounter for screening mammogram for breast cancer 1 Occurrences starting 02/12/2023 until 03/13/2024 [facility] Work Phone: Comment on above: 1 Occurrences starti ng 02/12/2023 until 03/13/2024 Payers Date Payer Category Payer Self-pay 2025 Unknown [id number] 2018 Unknown [employer] SELF P AY [employer] SELF PAY GENERIC [id number] 2018-Present Other [id number] 2018 Unknown [id number] Unknown [id number] Unknown [id number] Unknown [id number] Unknown [id number] Social History Date Type Detail Facility Start: 09-21-2013 End: 2017 Tobacco smoking status NHIS Never smoked tobacco [facility] Start: 10-24-2021 Alcohol intake Current non-dr hand upper and bottom lacer of alcohol (finding) [facility] Start: 1975 Sex Assigned At Not on file C [facility] Start: 09-21-2013 Tobacco use and exposure Smokeless tobacco non-user [facility] Work Phone: Start: 2017 Tobacco smoking stat us NHIS Unknown if ever smoked [facility] Start: 1975 Sex Assigned At Female W [facility] Start: 11-01-2020 End: 10-24-2021 History of Social function [facility] Start: 11-01-2020 End: 10-24-2021 Tobacco use panel [facility] Adult Depression Screening Assessment 2 [facility] Clinical Notes 10-20-2013 to 01-28-2024 Telephone Encounter - Norbert Carson - 06/26/2022 11:09 AM EDT Note Date & Type Note Facility 01-28-2024 Note Patient Outreach (IN TMMN) BATOOL SANTILLAN ([id number]) 1975 F Date Time Provider Department 01/28/24 ESTEPHANIA HERRON During your visit today, we recorded the following information about you: Allergies As of Date: 01/28/2024 Noted Allergy Reaction NO KNOWN DRUG ALLERGIES 08/09/2005 Date Reviewed: 07/02/2021 Reviewed by: Radha Sylvester LPN - Fully Assessed Visit Diagnosis:Encounter for screening mammogram for breast cancer [Z12.31] Order(s):UMESH SCREENING W JIA [[id number]] Order #: [id number] FUTURE Prescriptions as of 02/02/2024 - PARoxetine (PAXIL) 10 mg tablet Take 1 tablet by mouth once daily. Problem List As Of Date 01/28/2024 Noted Resolved Palpitations [R00.2] 12/09/2006 05/17/2013 Generalized anxiety disorder [F41.1] 12/09/2006 Melasma [L81.1] 09/06/2011 05/17/2013 Hyperpigmentation of skin of face [L81.9] 09/06/2011 05/17/2013 Solar Lentigines [L81.4] 09/06/2011 05/17/2013 Actinic skin damage [L57.8] 09/06/2011 05/17/2013 Advanced maternal age (AMA) in [IMO00*05/17/2013 09/20/2019 Spotting in first trimester [O26.851] 05/17/2013 09/20/2019 History of macrosomia in infant in prior pregna*05/17/2013 09/20/2019 Family history of defects [Z82.79] 05/17/2013 Two vessel umbilical cord, antepartum [O09.899] 08/06/2013 09/20/2019 Abnormal glucose in , antepartum [O99.*09/23/2013 Short femur of fetus on ultrasound [O3*10/20/2013 09/20/2019 Nipple discharge [N64.52] 01/21/2017 Encounter Status:Closed by TOYIN CORDOVA on 02/02/24 [facility] 02-12-2023 Note Patient Outreach (IN TMMN) BATOOL SANTILLAN ([id number]) 1975 F Date Time Provider Department 3/22/23 ESTEPHANIA HERRON During your visit today, we recorded the following information about you: Allergies As of Date: 02/12/2023 Noted Allergy Reaction NO KNOWN DRUG ALLERGIES 08/09/2005 Date Reviewed: 07/02/2021 Reviewed by: Radha Sylvester LPN - Fully Assessed Visit Diagnosis:Encounter for screening mammogram for breast cancer [Z12.31] Order(s):[facility] SCREENING W JIA [[id number]] Order #: [id number] FUTURE Prescriptions as of 02/17/2023 - PARoxetine (PAXIL) 10 mg tablet Take 1 tablet by mouth once daily. Problem List As Of Date 02/12/2023 Noted Resolved Palpitations [R00.2] 12/09/2006 05/17/2013 Generalized anxiety disorder [F41.1] 12/09/2006 Melasma [L81.1] 09/06/2011 05/17/2013 Hyperpigmentation of skin of face [L81.9] 09/06/2011 05/17/2013 Solar Lentigines [L81.4] 09/06/2011 05/17/2013 Actinic skin damage [L57.8] 09/06/2011 05/17/2013 Advanced maternal age (AMA) in [IMO00*05/17/2013 09/20/2019 Spotting in first trimester [O26.851] 05/17/2013 09/20/2019 History of macrosomia in infant in prior pregna*05/17/2013 09/20/2019 Family history of defects [Z82.79] 05/17/2013 Two vessel umbilical cord, antepartum [O09.899] 08/06/2013 09/20/2019 Abnormal glucose in , antepartum [O99.*09/23/2013 Short femur of fetus on ultrasound [O3*10/20/2013 09/20/2019 Nipple discharge [N64.52] 01/21/2017 Encounter Status:Closed by TOYIN CORDOVA on 02/17/23 [facility] 06-26-2022 Miscellaneous Notes Patient needs Paxil 10 mg for a 90 day prescription please. Send to [facility]. Call patient at [phone] when refilled. Thanks! documented in this encounter [facility] 10-20-2013 History of Past i llness Narrative Problem Noted Date Resolved Date Short femur of fetus on ultrasound 09/2509/20/2019 Overview: Informed increased risk down syndrome declined further testing Two vessel umbilical cord, antepartum 08/06/2013 09/20/2019 Overview: 10/06/13 - repeat u/s scheduled for next month with mfm- KJ 09/09/13 - repeat u/s & mfm consult ordered - Anatomy sonogram appears WNL no signs of other anomolies. Consider NST/BPP 32+ wks. Advanced maternal age (AMA) in 013 09/20/2019 Overview: 05/17/2013Naomi is 38 years old.Advanced Maternal age discussed. Pt refused handouts on Genetic Amniocentesis and [facility]. [facility] handout on Quad Marker Screen and Early Screening In given and discussed. Level II Ultrasound and Dr. Freeman's services discussed. Keiko CAICEDO RN Spotting in first trimester 05/17/201308/25 Overview: 05/17/13 - viable IUP on u/s today, suspect VB from friable cervix - KK 05/17/2013Patient states she had a small amount of red bleeding one time yesterday. She denies any prior intercourse. She states she did have right hip pain yesterday. She denies any pain or bleeding today. She has an appointment with Dr. Gold following this appointment today for new OB. Keiko CAICEDO RN History of macrosomia in inf ant in prior , currently 05/17/2013 09/20/2019 Overview: 05/17/2013Her third child's weight was 10#6oz. Keiko CAICEDO RN Melasma 09/06/2011 05/17/2013 Hyperpigmentation of skin of face 09/06/2011 05/17/2013 Solar Lentigines 09/06/2011 05/17/2013 Actinic skin damage 09/06/2011 05/17/2013 Palpitations 12/09/2006 05/17/2013 documented as of this encounter (statuses as of 06/26/2022) [facility]11-27-2013 History of Past illness Narrative* Problem Noted Date Resolved Date Short femur of fetus on ultrasound 09/2509/20/2019 Overview: Informed increased risk down syndrome declined further testing Two vessel umbilical cord, antepartum 08/06/2013 09/20/2019 Overview: 10/06/13 - repeat u/s scheduled for next month with mfm- 09/09/13 - repeat u/s & mfm consult ordered - Anatomy sonogram appears WNL no signs of other anomolies. Consider NST/BPP 32+ wks. Advanced maternal age (AMA) in 013 09/20/2019 Overview: 05/17/2013Naomi is 38 years old.Advanced Maternal age discussed. Pt refused handouts on Genetic Amniocentesis and [facility]. [facility] handout on Quad Marker Screen and Early Screening In given and discussed. Level II Ultrasound and Dr. Freeman's services discussed. Keiko CAICEDO RN Spotting in first trimester 05/17/201308/25 Overview: 05/17/13 - viable IUP on u/s today, suspect VB from friable cervix - KK 05/17/2013Patient states she had a small amount of red bleeding one time yesterday. She denies any prior intercourse. She states she did have right hip pain yesterday. She denies any pain or bleeding today. She has an appointment with Dr. Gold following this appointment today for new OB. Keiko CAICEDO RN History of macrosomia in inf ant in prior , currently 05/17/2013 09/20/2019 Overview: 05/17/2013Her third child's weight was 10#6oz. Keiko CAICEDO RN Melasma 09/06/2011 05/17/2013 Hyperpigmentation of skin of face 09/06/2011 05/17/2013 Solar Lentigines 09/06/2011 05/17/2013 Actinic skin damage 09/06/2011 05/17/2013 Palpitations 12/09/2006 05/17/2013 documented as of this encounter (statuses as of 02/17/2023) [facility]11-27-2013 History of Past illness Narrative* Problem Noted Date Diagnosed Date Resolved Date Short femur of fetus on ultrasound 10/20/2013 09/20/2019 Overview: Informed increased risk down syndrome declined further testing Two vessel umbilical cord, antepartum 08/06/2013 09/20/2019 Overview: 10/06/13 - repeat u/s scheduled for next month with m- 09/09/13 - repeat u/s & mfm consult ordered - Anatomy sonogram appears WNL no signs of other anomolies. Consider NST/BPP 32+ wks. Advanced maternal age (AMA) in 05/17/2013 09/20/2019 Overview: 05/17/2013Naomi is 38 years old.Advanced Maternal age discussed. Pt refused handouts on Genetic Amniocentesis and [facility]. [facility] handout on Quad Marker Screen and Early Screening In given and discussed. Level II Ultrasound and Dr. Freeman's services discussed. Keiko CAICEDO RN Spotting in first trimester 05/17/2013 09/20/2019 Overview: 05/17/13 - viable IUP on u/s today, suspect VB from friable cervix - KK 05/17/2013Patient states she had a small amount of red bleeding one time yesterday. She denies any prior intercourse. She states she did have right hip pain yesterday. She denies any pain or bleeding today. She has an appointment with Dr. Gold following this appointment today for new OB. Keiko CAICEDO RN History of macrosomia in inf ant in prior , currently 05/17/2013 09/20/2019 Overview: 05/17/2013Her third child's weight was 10#6oz. Keiko BECKN CANDY Melasma 09/06/2011 05/17/2013 Hyperpigmentation of skin of face 09/06/2011 05/17/2013 Solar Lentigines 09/06/2011 05/17/2013 Actinic skin damage 09/06/2011 05/17/20 13 Palpitations 12/09/2006 05/17/2013 documented as of this encounter (statuses as of 02/02/2024) [facility] Diagnosis Generalized anxiety disorder [facility] Diagnosis Encounter for screening mammogram for breast cancer documented in this encounter [facility] noteNo assessment information availableWOhio[facility] Work Phone: Evaluation note* Diagnosis Encounter for screening mammogram for breast cancer [facility])* Diagnostic Procedure Only (Routine) - Authorized Specialty Diagnoses / Procedures Referred By Deepak sánchez Referred To Contact [facility] Diagnoses Encounter for screening mammogram for breast cancer Procedures UMESH SCREENING W JIA SCREENING DIGITAL BREAST TOMOSYNTHESIS BI SCREENING MAMMOGRAPHY BI 2-VIEW BREAST INC Estephania Soni MD [address] [place] [address] [facility] [address] [place] [address] Referral ID Status Reason Start Date Expiration Date Visits Requested Visits Authorized [id number] Authorized Auto-Generat ed Referral Patient Cleared - [facility] 02/12/2023 03/13/2024 [facility] Diagnostic Procedure Only (Routine) - Pending Review Specialty Diagnoses / Procedures Referred By Deepak sánchez Referred To Contact [facility] Diagnoses Encounter for screening mammogram for breast cancer Procedures UMESH SCREENING W JIA SCREENING DIGITAL BREAST TOMOSYNTHESIS BI SCREENING MAMMOGRAPHY BI 2-VIEW BREAST INC Estephania Soni MD [address] [place] [address] [facility] [address] [place] [address] Referral ID Status Reason Start Date Expiration Date Visits Requested Visits Authorized [id number] Pending Review Auto-Generat ed Referral 01/28/2024 02/26/2025 1 1 [facility] (narrative)No reason for referral information availableWOhioHealth [facility] Work Phone: Advance Directives No Advanced Directives Records Found Advance Directive Response Recorded Date/ Time Advance Directives No December 19, 2013 10:57pm Living Will No 2017 9 :12am Power of Breeder Service Technician No 2017 9:12am Advance Directive Response Recorded Date/ Time Advance Directives No December 19, 2013 10:57pm Summary Purpose Family History No Family History Records FoundNo Family History Records Found Chief Complaint and Reason for Visit Chief Complaint Admit Date SCREENING April 25, 2025 7:34a m Chief Complaint Admit Date SCREENING April 25, 2025 7:34a m EORDERS July 04, 2025 8: 53am Additional Source Comments Source Comments (unrecognize d section and content) In the event this informatio n is protected by the Federal Confidentiality of Alcohol and Drug Abuse Patient Records regulations: The Federal rules restrict any use of the information to criminally investigate or prosecute any alcohol or drug abuse patient.[facility] the event this information is protected by the Federal Confidentiality of Alcohol and Drug Abuse Patient Records regulations: The Federal rules restrict any use of the information to criminally investigate or prosecute any alcohol or drug abuse patient.[facility] NorthIn the event this information is protected by the Federal Confidentiality of Alcohol and Drug Abuse Patient Records regulations: The Federal rules restrict any use of the information to criminally investigate or prosecute any alcohol or drug abuse patient.[facility] Reason for Visit (unrecogniz ed section and content) Reason Onset Date Comments Refill Request 06/26/2022 Care Teams (unrecognized sec tion and content) Settlement Clerk Relationship Specialty Start Date End Date Estephania Herron MD [address], [place] [phone] PCP - General Internal Medicine 06/26/22 Settlement Clerk Relationship Specialty Start Date End Date Estephania Herron MD [address], [place] [id number] PCP - General Internal Medicine 06/26/22 Team Status: Active Member Role Status Dates Dr. Lexa Layton III, MD Family Provider Active Ricki Nice MD Primary Care Provider Active Team Status: Inactive Member Role Status Clay Nice MD Primary Care Provide r, Attending Provider, Referring Provider Active Settlement Clerk Relationship Specialty Start Date End Date Estephania Herron MD [address], [place] [phone] PCP - General Internal Medicine 06/26/22 Team Status: Active Member Role Status Clay Nice MD Primary Care Provider Active Team Status: Inactive Member Role Status Clay Nice MD Primary Care Provider Active St art: April 25, 2025 End: April 25, 2025 Ricki Nice MD Attending Provider Active Start : April 25, 2025 End: April 25, 2025 Ricki Nice MD Referring Provider Active Start : April 25, 2025 End: April 25, 2025 Team Status: Active Member Role/Relationship Status Clay Nice MD Primary Care Provider Active Team Status: Inactive Member Role/Relationship Status Clay Nice MD Primary Care Provider Active St art: April 25, 2025 End: April 25, 2025 Ricki Nice MD Attending Provider Active Start : April 25, 2025 End: April 25, 2025 Ricki Nice MD Referring Provider Active Start : April 25, 2025 End: April 25, 2025 Team Status: Inactive Member Role/Relationship Status Clay Nice MD Primary Care Provider Active St art: July 04, 2025 End: July 04, 2025 Ricki Nice MD Attending Provider Active Start : July 04, 2025 End: July 04, 2025 Ricki Nice MD Referring Provider Active Start : July 04, 2025 End: July 04, 2025 Goals (unrecognized section and content) Goals may be documented in a n alternate sectionGoals may be documented in an alternate sectionGoals may be documented in an alternate section INFORMATION SOURCE (unrecogn ized section and content) DATE CREATED AUTHOR 02/02/2024 [facility] [place] DATE CREATED AUTHOR AUTHOR'S MAGDA KRUGER 10/03/2025 [facility] FOR RECORDS PERTAINING TO PATIENTS WHO ARE OR HAVE BEEN ENROLLED IN A CHEMICAL DEPENDENCY/SUBSTANCEABUSE PROGRAM, SOME INFORMATION MAY BE OMITTED. This clinical summary was aggregated from multiple sources. Caution should be exercised in using it in the provision of clinical care. This summary normalizes information from multiple sources, and as a consequence, information in this document may materially change the coding, format and clinical context of patient data. In addition, data may be omitted in some cases. CLINICAL DECISIONS SHOULD BE BASED ON THE PRIMARY CLINICAL RECORDS. [employer] provides no warranty or guarantee of the accuracy or completeness of information in this document.
== END | disposition home or self-care (01) ==
PROVIDERS: PCP Family Medicine; Referring Provider Family Medicine; Visit Provider Family Medicine
DX: I49.3 Ventricular premature depolarization (principal)
CPT/HCPCS: 93306